=== PATIENT | male | born 1950 | race Caucasian/White ===

== ENCOUNTER 2017-09-01 13:18 | Emergency (ER) | payer OTHER, MEDICARE ==
[~2017-09-01 13:18] MED LIST: ADVIL200 M2 PO; VITAMIN B-121000 MC3 PO; VITAMIN D1000 UNIT PO
[2017-09-01 13:36] VITALS: BP 168/83
--- NOTE | 2017-09-01 14:25 | RADIOLOGY REPORT ---
EXAMINATION: XR CHEST CLINICAL INFORMATION: Cough for 3 months. Pneumonia/bronchitis. COMPARISON: 07/10/2017 TECHNIQUE: 2 views with 4 images obtained. FINDINGS: The cardiac silhouette is not enlarged. Mild tortuosity of the thoracic aorta. The lungs and pleural spaces are clear without consolidation. There is minor linear atelectasis in the right midlung. Minor degenerative changes are seen in the thoracic spine. IMPRESSION: No acute pulmonary process. Minor linear atelectasis is seen in the right midlung.
--- NOTE | 2017-09-01 15:03 | ED INFLUENZA/URI COMPLAINT ---
History of Present Illness General Chief Complaint: General Adult Stated Complaint: URI, COUGH, FEVER Source: patient, old records Exam Limitations: no limitations Vital Signs & Intake/Output Vital Signs & Intake/Output Vital Signs Date Time Temp Pulse Resp B/P B/P Pulse O2 O2 Flow FiO2 Mean Ox Delivery Rate 09/01 1553 93 09/01 1534 99.1 09/01 1336 99.1 91 18 168/83 94 Room Air Allergies Coded Allergies: NO KNOWN ALLERGIES (07/14/13) Reconcile Medications Cholecalciferol (Vitamin D3) (Vitamin D) (Unknown Strength) TABLET (Unknown Dose) PO DAILY SUPPLEMENT (Reported) Codeine Phosphate/Guaifenesi (Guaifen-Codeine 100-10 MG/5 Ml) 10 MG-100 MG/5 ML LIQUID 10 ML PO Q6HR PRN COUGH Cyanocobalamin (Vitamin B-12) (Unknown Strength) TABLET (Unknown Dose) PO DAILY SUPPLEMENT (Reported) Ibuprofen (Advil) 200 MG TABLET 5 TAB PO PRN PAIN (Reported) Triage Note: PT C/O COUGH FOR A FEW MONTHS. TEMP IN TRIAGE 99.1. C/O BODY ACHES WELL. HAS BEEN USING NEBULIZERS AT HOME WITH SOME RELIEF. Triage Nurses Notes Reviewed? yes Onset: Abrupt Duration: week(s): Timing: recent history Severity: mild, moderate Severity Numbers: 5 Prior Episodes/Possible Cause: occassional episodes No Modifying Factors: none Associated Symptoms: cough, nasal congestion, wheezing HPI: 66-year-old male with history of hypertension and asthma presents to the ER for evaluation complaining of a intermittent nonproductive and productive cough going on for the past 2-3 months. He is been on several doses of antibiotics and steroids without improvement. His primary care physician prescribed him albuterol Symbicort and a nebulizer which she states has been giving him improvement in the shortness of breath which comes with the coughing. He denies any associated chest pain abdominal pain nausea vomiting fever chills. His has had similar symptoms however she is improving. He has never smoked He is an appointment scheduled with a production recorder for the first time next month. (Greg Grayson) Past History Travel History Traveled to [place] past 21 day No Medical History Any Pertinent Medical History? see below for history Neurological: MIGRAINES EENT: NONE Cardiovascular: hypertension Respiratory: NONE Gastrointestinal: NONE Hepatic: NONE Renal: NONE Musculoskeletal: CHRONIC BACK PAIN Psychiatric: NONE Endocrine: NONE Blood Disorders: NONE Cancer(s): NONE Tetanus Vaccine: 07/14/13 Surgical History Surgical History: non-contributory Psychosocial History What is your primary language Burmese Tobacco Use: Never used Family History Hx Contributory? No (Greg Grayson) Review of Systems Review of Systems Constitutional: Reports: see HPI. Comments Review of systems: See HPI, All other systems negative. Constitutional, no chills no fever, HEENT: no sore throat no congestion, no ear pain Cardiovascular: No chest pain , no palpitation Skin: no rashes, no change in skin Respiratory: No dyspnea cough no sputum GI: No nausea no vomiting, no diarrhea, : No dysuria Muscle skeletal: No joint pain, no back pain Neurologic: , no headache Heme/endocrine: No bruising Immunology: No lymphadenopathy (Greg Grayson) Physical Exam Physical Exam General Appearance: well developed/nourished, alert, awake Ears, Nose, Throat: normal ENT inspection Comments: Well-developed well-nourished person in no acute distress HEENT: Normal EENT exam; PERRL, EOMI, no nystagmus. HEAD is atraumatic. moist mucous membranes. Neck: Supple, normal range of motion Back: Full range of motion Cardiovascular: Regular rate and rhythms no murmurs rubs or gallops, normal JVP Respiratory: Chest nontender.There were no bony deformities, no asymmetry. No respiratory distress. Patient speaking in full complete sentences. wheezing b/l no rhonchi Abdomen: Soft, nontender nondistended, Extremity: No edema, full range of motion of extremities Neuro: Alert oriented x3, motor sensory normal,There were no obvious focal neurologic abnormalities. Skin: No appreciable rash on exposed skin, skin is warm and dry. Psych: Mood and affect is normal, memory and judgment is normal. Core Measures Sepsis Present: No Sepsis Focused Exam Completed? No (Greg Grayson) Progress Differential Diagnosis: influenza, otitis, pneumonia, pharyngitis, sinusitis, BRONCHTIIS, asthma, reactive airway, malignancy Plan of Care: Orders Procedure Date/time Status LOWER RESPIRATORY CULTURE 09/01 1603 Active TROPONIN LEVEL 09/01 1516 Complete COMPREHENSIVE METABOLIC PANEL 09/01 1516 Complete CBC WITHOUT DIFFERENTIAL 09/01 1516 Complete RAPID VIRAL INFLUENZA A 09/01 1319 Complete Laboratory Tests 09/01/17 1538: Anion Gap 13, Estimated GFR > 60, BUN/Creatinine Ratio 15.0, Glucose 149 H, Calcium 8.8, Total Bilirubin 0.4, AST 20, ALT 31, Alkaline Phosphatase 60, Troponin I < 0.01, Total Protein 6.8, Albumin 4.2, Globulin 2.6, Albumin/ Globulin Ratio 1.6, CBC w Diff NO MAN DIFF REQ, RBC 4.96, MCV 88.3, MCH 30.4, MCHC 34.4, RDW 14.2, MPV 8.6, Gran % 86.1 H, Lymphocytes % 8.0 L, Monocytes % 5.7, Eosinophils % 0.2, Basophils % 0, Absolute Granulocytes 5.4, Absolute Lymphocytes 0.5 L, Absolute Monocytes 0.4, Absolute Eosinophils 0, Absolute Basophils 0 Microbiology 09/01 1603 LOWER RESP: Respiratory Culture - RECD 09/01 160 LOWER RESP: Gram Stain - RECD 09/01 1338 NASOPHARYN: Influenza Virus A & B Rapid Smear - COMP DuoNeb ordered patient may take ibuprofen Zofran I discussed with him at length his x-ray results to date I discussed with the patient at length all of their results. I had an extensive conversation regarding need for close follow up with their primary care physician this week as well as return precautions. I answered all of their questions, they feel comfortable with the plan and follow-up care. I discussed with the patient/family the medications that they will receive. I gave them signs and symptoms that could indicate an adverse reaction. I have advised them to limit their activities until they can see how they respond to the medication. Diagnostic Imaging: Viewed by Me: Radiology Read. Discussed w/RAD: Radiology Read. Radiology Impression: PATIENT: KESHAWN SIDDIQI PRESENT AGE: 66 PATIENT ACCOUNT NO: [id number] : 49 LOCATION: [facility] ORDERING PHYSICIAN: Bhavani Medina MD SERVICE DATE: 09/01/17 EXAM TYPE: RAD - XRY -CHEST XRAY, TWO VIEWS EXAMINATION: XR CHEST CLINICAL INFORMATION: Cough for 3 months. Pneumonia/bronchitis. COMPARISON: 07/10/2017 TECHNIQUE: 2 views with 4 images obtained. FINDINGS: The cardiac silhouette is not enlarged. Mild tortuosity of the thoracic aorta. The lungs and pleural spaces are clear without consolidation. There is minor linear atelectasis in the right midlung. Minor degenerative changes are seen in the thoracic spine. IMPRESSION: No acute pulmonary process. Minor linear atelectasis is seen in the right midlung. DICTATED BY: Idris Mckeon MD DATE/TIME DICTATED:09/01/171419 FACTORY LABORER:AUDREY DATE/TIME TRANSCRIBED:09/01/171419 CONFIDENTIAL, DO NOT COPY WITHOUT APPROPRIATE AUTHORIZATION. <Electronically signed in Other Vendor System> SIGNED BY: Idris Mckeon MD 09/01/171424 Initial ED EKG: none (Greg Grayson) Departure Departure Time of Disposition: 163 Disposition: HOME OR SELF CARE Condition: Stable Clinical Impression Primary Impression: Bronchitis Referrals: Delaney BOWDEN,Ekta (PCP/Family) Olga BOWDEN,Herman Reddy MD,Amari Additional Instructions: Follow-up with primary care physician as well as production recorder Dr. Reddy or Dr. Cardenas tomorrow for follow-up evaluation. Guaifenesin with codeine for your cough use caution as this may make you drowsy. Departure Forms: Customer Survey General Discharge Information Prescriptions: Current Visit Scripts Codeine Phosphate/Guaifenesi (Guaifen-Codeine 100-10 MG/5 Ml) 10 ML PO Q6HR PRN COUGH #150 ML (Greg Grayson) PA/HEAVY EQUIPMENT ENGINE MECHANIC Co-Sign Statement Statement: ED Attending supervision documentation- [X] I saw and evaluated the patient. I have also reviewed all the pertinent lab results and diagnostic results. I agree with the findings and the plan of care as documented in the PA's/HEAVY EQUIPMENT ENGINE MECHANIC's documentation. [X] I have reviewed the ED Record and agree with the PA's/HEAVY EQUIPMENT ENGINE MECHANIC's documentation. [] Additions or exceptions (if any) to the PAs/HEAVY EQUIPMENT ENGINE MECHANIC's note and plan are summarized below: [] (Carol BOWDEN,Bhavani)
[2017-09-01 15:53] LABS: ABSOLUTE BASOPHIL COUNT 0 /CUMM (0.0-0.2); ABSOLUTE EOSINOPHIL COUNT 0 /CUMM (0.0-0.7); ABSOLUTE GRANULOCYTE CT 5.4 /CUMM (1.4-6.5); ABSOLUTE LYMPH COUNT 0.5 /CUMM (1.2-3.4); ABSOLUTE MONOCYTE COUNT 0.4 /CUMM (0.10-0.60); BASOPHIL % 0 % (0.0-2.0); EOSINOPHIL % 0.2 % (0-5); HEMATOCRIT 43.8 % (42-52); MEAN CORPUSCULAR HGB 30.4 PG (27.0-31.0); MEAN CORPUSCULAR HGB CONC 34.4 G/DL (33.0-37.0); MEAN CORPUSCULAR VOLUME 88.3 FL (80.0-94.0); MEAN PLATELET VOLUME 8.6 FL (7.4-10.4); PLATELET COUNT 164 /CUMM (130-400); RBC DISTRIBUTION WIDTH 14.2 % (11.5-14.5); RED BLOOD CELL CT 4.96 /CUMM (4.70-6.10); WHITE BLOOD CELL COUNT 6.3 /CUMM (4.8-10.8)
[2017-09-01 16:16] LABS: GRANULOCYTE % 86.1 % (42.2-75.2)
[2017-09-01] MEDS ORDERED: GUAIFEN-CODEIN118 M1 PO (16:32)
== END 2017-09-01 16:37 ==
LOC: ERH 13:18
PROVIDERS: Physician Assistant Medical
DX: J40 Bronchitis, not specified as acute or chronic (principal)
CPT/HCPCS: 1263; 71046; 87070; 87071; 87804; 87804-59; J3101

== ENCOUNTER 2017-10-27 16:07 | Emergency (ER) | payer OTHER, MEDICARE ==
[~2017-10-27] VITALS: Ht 180.3 cm; Wt 102.1 kg
[~2017-10-27 16:07] MED LIST changes: +GUAIFEN-CODEIN118 M1 PO
[2017-10-27 16:35] LABS: ABSOLUTE BASOPHIL COUNT 0 /CUMM (0.0-0.2); ABSOLUTE EOSINOPHIL COUNT 0.3 /CUMM (0.0-0.7); ABSOLUTE GRANULOCYTE CT 5.6 /CUMM (1.4-6.5); ABSOLUTE MONOCYTE COUNT 0.6 /CUMM (0.10-0.60); BASOPHIL % 0.4 % (0.0-2.0); EOSINOPHIL % 3.4 % (0-5); GRANULOCYTE % 59.1 % (42.2-75.2); HEMATOCRIT 45.5 % (42-52); MEAN CORPUSCULAR HGB 30.3 PG (27.0-31.0); MEAN CORPUSCULAR HGB CONC 34.2 G/DL (33.0-37.0); MEAN CORPUSCULAR VOLUME 88.8 FL (80.0-94.0); PLATELET COUNT 235 /CUMM (130-400); RED BLOOD CELL CT 5.13 /CUMM (4.70-6.10); WHITE BLOOD CELL COUNT 9.6 /CUMM (4.8-10.8)
--- NOTE | 2017-10-27 16:43 | ED CARDIAC/CP/PALPITATIONS ---
History of Present Illness General Chief Complaint: Chest Pain Stated Complaint: CP Source: patient, family Exam Limitations: no limitations Allergies Coded Allergies: NO KNOWN ALLERGIES (07/14/13) Reconcile Medications Cholecalciferol (Vitamin D3) (Vitamin D) (Unknown Strength) TABLET (Unknown Dose) PO DAILY SUPPLEMENT (Reported) Codeine Phosphate/Guaifenesi (Guaifen-Codeine 100-10 MG/5 Ml) 10 MG-100 MG/5 ML LIQUID 10 ML PO Q6HR PRN COUGH Cyanocobalamin (Vitamin B-12) (Unknown Strength) TABLET (Unknown Dose) PO DAILY SUPPLEMENT (Reported) Ibuprofen (Advil) 200 MG TABLET 5 TAB PO PRN PAIN (Reported) Triage Note: 67M REPORTS EPISODE LASTING 10 MINUTES AT 11AM TODAY OF SUBSTERNAL LEFT SIDED CHEST, WAS NON REPRODUCIBLE AND GRADUAL IN ONSET. BECAME SOB, WAS UNABLE TO SPEAK AND HAD TO SIT. REPORTS HE WAS FLUSHED AND DIAPHORETIC, AND HAD DIZZINESS. DENIES HEADACHE THEN OR CURRENTLY DESPITE HYPERTENSIVE STATE. STATES HE HAD FULL BREAKFAST. -N/V/D AND DENIES ABD PAIN. DENIES PAIN AT PRESENT. DENIES CURRENT SOB OR WILKES. SPEAKING IN FULL SENTENCES AND COLORING APPROPRIATE. GENERALLY WELL-APPEARING. APPEARS NORMAL SINUS ON EKG. LABS DRAWN IN TRIAGE. Triage Nurses Notes Reviewed? yes Onset: Abrupt Duration: minute(s): Timing: recent history Quality/Severity: severe, sharp Location: LEFT CHEST Radiation: LEFT FLANK Activities at Onset: none Prior Chest Pain/Card Workup: PREVIOUS STRESS TEST- NEGATIVE Nitro Today/Relief: no nitro taken today Aspirin Today: no aspirin today HPI: Patient is a 67-year-old male presenting to the emergency department complaining of left chest pain began abruptly this morning around 11 AM was at [employer]. Patient reports he had associated dyspnea but the pain. Symptoms lasted approximately 10-15 minutes and then resolves. He could not breathe or do anything during this time. According to the patient he's had several episodes of similar symptoms in the past, approximately 3-4 episodes a year. He has seen his primary care physician and was told everything is okay. Patient asymptomatic at the time. Denies any nausea or vomiting. No palpitations associated with this. Patient has not been under a lot of stress. Patient does admit that he has been coughing recently. No sputum production. No fevers or chills. Denies any back pain. No arm pain. No numbness or tingling. Denies any jaw pain. Patient reports that only time makes symptoms better. Patient had a second episode today. Large after the first which only lasted about 10 seconds and then resolved. (Teresa Yoder) Vital Signs & Intake/Output Vital Signs & Intake/Output ED Intake and Output 04 0000 10/27 1200 Intake Total 240 Output Total Balance 240 Intake, Oral 240 Patient 225 lb Weight Weight Reported by Patient Measurement Method (Greg Grayson) Past History Travel History Traveled to [place] past 21 day No Medical History Any Pertinent Medical History? see below for history Neurological: MIGRAINES EENT: NONE Cardiovascular: hypertension Respiratory: NONE Gastrointestinal: NONE Hepatic: NONE Renal: NONE Musculoskeletal: CHRONIC BACK PAIN Psychiatric: NONE Endocrine: NONE Blood Disorders: NONE Cancer(s): NONE Tetanus Vaccine: 07/14/13 Surgical History Surgical History: non-contributory Psychosocial History What is your primary language Wolof Tobacco Use: Refused to answer Family History Family History, If Any: FATHER, . Relation not specified for: FH: diabetes mellitus FH: hypertension Hx Contributory? Yes (Teresa Yoder) Review of Systems Review of Systems Constitutional: Reports: no symptoms. Comments Review of systems: See HPI, All other systems negative. Constitutional, no chills fever or weight loss HEENT: No visual changes no sore throat no congestion Cardiovascular: No palpitation , orthopnea or ankle swelling Skin, no jaundice no rashes Respiratory: No cough sputum or hemoptysis GI: No nausea no vomiting : No dysuria No hematuria Muscle skeletal: no back pain, no neck pain, Neurologic: No numbness no confusion Psych: No stress anxiety or depression,. Heme/endocrine: No bruising no bleeding no polyuria or polydipsia Immunology: No splenectomy or history of AIDS (Teresa Yoder) Physical Exam Physical Exam General Appearance: well developed/nourished, no apparent distress, alert, awake , comfortable Cardiovascular: regular rate/rhythm Comments: Obese person in no acute distress HEENT: Atraumatic, normocephalic Neck: Normal inspection Back: Nontender Cardiovascular: Regular rate and rhythms no murmurs rubs or gallops, normal JVP Respiratory: Chest nontender. No respiratory distress.breath sounds clear to auscultation bilaterally Abdomen: Soft, obese, nontender nondistended, no appreciable organomegaly. Normal bowel sounds. No ascites Extremity: No edema, no calf tenderness to palpation, normal and equal pulses. Neuro: Alert oriented x3, motor sensory normal, cranial nerves II through XII grossly intact. Skin: No appreciable rash on exposed skin, skin is warm and dry. Psych: Mood and affect is normal, memory and judgment is normal. Core Measures ACS in differential dx? Yes CVA/TIA Diagnosis No Sepsis Present: No Sepsis Focused Exam Completed? No (Teresa Yoder) Progress Differential Diagnosis: MUSCULOSKELETAL PAIN, PULMONARY AND LIST, acs, PNEUMONIA , BRONCHITIS, COSTOCHONDRITIS Diagnostic Imaging: Viewed by Me: Radiology Read. Discussed w/RAD: Radiology Read. Radiology Impression: PATIENT: KESHAWN SIDDIQI PRESENT AGE: 67 PATIENT ACCOUNT NO: [id number] : 49 LOCATION: [facility] [place] ORDERING PHYSICIAN: Teresa PHAM SERVICE DATE: 10/27/17 EXAM TYPE: RAD - XRY-CHEST XRAY, TWO VIEWS EXAMINATION: XR CHEST CLINICAL INFORMATION: Chest pain. COMPARISON: Chest radiography 09/01/2017. TECHNIQUE: 2 views of the chest were obtained. FINDINGS: No new significant abnormality is noted involving the heart, lungs, mediastinum, bony thorax or soft tissues. IMPRESSION: No acute pulmonary pathology demonstrated. DICTATED BY: Kingsley Bhagat MD DATE/TIME DICTATED:10/27/171699 MANAGING MANAGER:AUDREY DATE/TIME TRANSCRIBED:1699 CONFIDENTIAL, DO NOT COPY WITHOUT APPROPRIATE AUTHORIZATION. < Electronically signed in Other Vendor System> SIGNED BY: Kingsley Bhagat MD 10/27/171705 Initial ED EKG: NSR Hand-Off Endorsed To: Greg Grayson Endorsed Time: 2099 Pending: EKG, labs Comments: 10/27/2017 8:14:48 PM patient resting comfortably. Still asymptomatic. First troponin and EKG are negative. Patient will have repeat done in the next 5-10 minutes, 4 hours from the first. Patient will be signed out to VERO Mcginnis pending repeat troponin and EKG. (Teresa Yoder) Plan of Care: Orders Procedure Date/time Status TROPONIN LEVEL 10/28 2019 Active EKG 10/28 2019 Active URINALYSIS 10/27 1733 Complete Add-on Test (ER Only) 10/27 164 Active Telemetry/Maintenance Mechanic 10/27 164 Active D-DIMER 10/27 162 Complete TROPONIN LEVEL 10/27 161 Complete MAGNESIUM 10/27 161 Complete COMPREHENSIVE METABOLIC PANEL 10/27 161 Complete CBC WITHOUT DIFFERENTIAL 10/27 161 Complete EKG 10/27 1608 Active Laboratory Tests 10/27/17 1815: Urine Color YEL, Urine Clarity CLEAR, Urine pH 6.5, Ur Specific [place] 1.020, Urine Protein NEG, Urine Ketones NEG, Urine Nitrite NEG, Urine Bilirubin NEG, Urine Urobilinogen 0.2, Ur Leukocyte Esterase NEG, Ur Microscopic EXAM NOT REQUIRED, Urine Hemoglobin NEG, Urine Glucose NEG 10/27/17 1620: Anion Gap 12, Estimated GFR > 60, BUN/Creatinine Ratio 19.1, Glucose 95, Calcium 8.8, Magnesium 1.9, Total Bilirubin 0.6, AST 17, ALT 24, Alkaline Phosphatase 73 , Troponin I < 0.01, Total Protein 7.0, Albumin 4.2, Globulin 2.8, Albumin/ Globulin Ratio 1.5, D-Dimer High Sensitivty < 200, CBC w Diff NO MAN DIFF REQ, RBC 5.13, MCV 88.8, MCH 30.3, MCHC 34.2, RDW 14.0, MPV 8.0, Gran % 59.1, Lymphocytes % 31.3, Monocytes % 5.8, Eosinophils % 3.4, Basophils % 0.4, Absolute Granulocytes 5.6, Absolute Lymphocytes 3.0, Absolute Monocytes 0.6, Absolute Eosinophils 0.3, Absolute Basophils 0 2115 patient is resting in no acute distress he's been a symptomatically in the emergency room I discussed with him and his his lab results As well as his elevated blood pressure and the risks of hypertension, he has been taking his medication. Advised close follow up with his primary care physician information will be provided for follow-up with cardiology feels comfortable with plan cleared for discharge (Greg Grayson) Departure Departure Disposition: HOME OR SELF CARE Condition: Stable Clinical Impression Primary Impression: Chest pain Qualifiers: Chest pain type: unspecified Qualified Code: R07.9 - Chest pain, unspecified Referrals: Delaney BOWDEN,Ekta (PCP/Family) Sigifredo Howe MD Departure Forms: Customer Survey General Discharge Information (Teresa Yoder) Departure Time of Disposition: 2113 Additional Instructions: Follow-up with primary care physician in the next 5-7 days. Also follow-up with cardiology Dr Howe. Return for worsening symptoms or concerns. (Delfin PHAM,Greg) PA/MAIL CENSOR Co-Sign Statement Statement: ED Attending supervision documentation- [X] I saw and evaluated the patient. I have also reviewed all the pertinent lab results and diagnostic results. I agree with the findings and the plan of care as documented in the PA's/MAIL CENSOR's documentation. [X] I have reviewed the ED Record and agree with the PA's/MAIL CENSOR's documentation. [] Additions or exceptions (if any) to the PAs/MAIL CENSOR's note and plan are summarized below: [] (Sebastian BOWDEN,Arpan Rodríguez) Critical Care Note Critical Care Note Critical Care Time: non-applicable (Teresa Yoder)
--- NOTE | 2017-10-27 17:06 | RADIOLOGY REPORT ---
EXAMINATION: XR CHEST CLINICAL INFORMATION: Chest pain. COMPARISON: Chest radiography 09/01/2017. TECHNIQUE: 2 views of the chest were obtained. FINDINGS: No new significant abnormality is noted involving the heart, lungs, mediastinum, bony thorax or soft tissues. IMPRESSION: No acute pulmonary pathology demonstrated.
[2017-10-27 21:50] VITALS: BP 188/101
== END 2017-10-27 21:51 ==
LOC: ERH 16:07
PROVIDERS: Emergency Medicine
DX: R07.9 Chest pain, unspecified (principal)
CPT/HCPCS: 71046; 81003; 93005; 93010